=== PATIENT | male | born 1955 | race Caucasian/White ===

== ENCOUNTER → 2017-12-02 | Outpatient (CLI) | payer BC, OTHER ==
[~2017-12-02] MED LIST: ACET325T14 PO; CELE200C PO; NAPR250T6 PO; NICO2GUM5 PO
[2017-12-02 09:52] LABS: MICROSCOPIC NOT IND
[2017-12-02 09:54] LABS: BASOPHILS # (AUTO) 0.05 x10^3/uL (0-0.1); BASOPHILS % (AUTO) 0 % (0-1); EOSINOPHILS # (AUTO) 0.25 x10^3/uL (0-0.4); EOSINOPHILS % (AUTO) 2 % (1-7); LYMPHOCYTES # (AUTO) 2.98 x10^3/uL (1-3.4); LYMPHOCYTES % (AUTO) 22 % (22-44); MD NO; MEAN CORPUSCULAR HEMOGLOBIN 31.7 pg (27.5-34.5); MEAN CORPUSCULAR HGB CONC 34.4 g/dL (33.2-36.2); MEAN PLATELET VOLUME 8.6 fL (7.4-10.4); MONOCYTES # (AUTO) 0.91 x10^3/uL (0.2-0.8); MONOCYTES % (AUTO) 7 % (2-9); NEUTROPHILS # (AUTO) 9.24 x10^3/uL (1.8-6.8); NEUTROPHILS % (AUTO) 69 % (42-75); PLATELET COUNT 255 x10^3/uL (130-400); RED BLOOD COUNT 4.95 x10^6/uL (4.38-5.82); RED CELL DISTRIBUTION WIDTH 13.4 % (9.4-14.8)
[2017-12-02 10:00] LABS: CULTURE INDICATED? NO
[2017-12-02 10:07] LABS: ALANINE AMINOTRANSFERASE 32 U/L (12-78); ALBUMIN 3.5 g/dL (3.4-5.0); ANION GAP 6 mmol/L (5-15); CALCIUM 8.7 mg/dL (8.5-10.1); CHLORIDE 113 mmol/L (98-107); CREATININE 0.93 mg/dL (0.7-1.3)
[2017-12-02 10:17] LABS: ALKALINE PHOSPHATASE 77 U/L (45-117); BILIRUBIN,TOTAL 0.3 mg/dL (0.2-1.0); TOTAL PROTEIN 7.1 g/dL (6.4-8.2)
== END | disposition home or self-care (01) ==
LOC: STAR 08:44
PROVIDERS: ATTEND Orthopaedic Surgery
DX: Z01.818 Encounter for other preprocedural examination (principal); M16.12 Unilateral primary osteoarthritis, left hip
CPT/HCPCS: 36415; 80053; 81003; 85025; 87081; 87147; 87806; 93005; G0475

== ENCOUNTER 2017-12-06 05:55 | Inpatient (IN) | payer BC, OTHER ==
[~2017-12-06] VITALS: Ht 193 cm; Wt 110.3 kg
[2017-12-06] MEDS ORDERED: VANCOMYCIN PMX 1GM/200ML 200 ML IV ONE (06:07)
[2017-12-06] MEDS ORDERED: LACTATED RINGERS 1,000 ML IV SCH (06:37)
[2017-12-06] MEDS ORDERED: TRANEXAMIC ACID 100 MG/ML, 10ML ONE (06:56)
[2017-12-06] MEDS ORDERED: KETOROLAC 60 MG/2 ML ONE (06:56)
[2017-12-06] MEDS ORDERED: morphine SULFATE/PF 1 MG/ML, 10ML ONE (06:57)
[2017-12-06] MEDS ORDERED: EPINEPHRINE 1 MG/ML, 1ML ONE (06:57)
[2017-12-06] MEDS ORDERED: SODIUM CHLORIDE 0.9% 100 ML ONE (06:57)
[2017-12-06] MEDS ORDERED: BACITRACIN 50,000 UNIT ONE (06:57)
[2017-12-06] MEDS ORDERED: FENTANYL PF 100 MCG/2ML ONE (07:16)
[2017-12-06] MEDS ORDERED: MIDAZOLAM 1 MG/ML, 2ML ONE (07:16)
[2017-12-06] MEDS ORDERED: TRANEXAMIC ACID 1,000 MG in SODIUM CHLORIDE 0.9% 100 ML IV ONE (08:00)
[2017-12-06] MEDS ORDERED: DIPHENHYDRAMINE 50 MG CAPSULE PO PRN (08:00)
[2017-12-06] MEDS ORDERED: LORazepam 2 MG/ML, 1ML IVPush PRN (08:00)
[2017-12-06] MEDS ORDERED: MORPHINE SULFATE 4 MG/ML, 1ML IVPush PRN (08:00)
[2017-12-06] MEDS ORDERED: ACETAMINOPHEN 325 MG TABLET PO PRN ×2 (08:00→09:00)
[2017-12-06] MEDS ORDERED: ZOLPIDEM 5MG TABLET PO PRN (08:00)
[2017-12-06] MEDS ORDERED: EPHEDRINE 50 MG/ML, 1ML ONE ×2 (08:59)
[2017-12-06] MEDS ORDERED: CEFAZOLIN 1,000 MG ONE ×3 (08:59)
[2017-12-06] MEDS ORDERED: PROPOFOL 10 MG/ML, 20ML ONE (08:59)
[2017-12-06] MEDS ORDERED: DIAZEPAM 5 MG/ML, 2ML IVPush PRN (09:00)
[2017-12-06] MEDS ORDERED: PROMETHAZINE 25 MG/ML, 1ML IV PRN (09:00)
[2017-12-06] MEDS ORDERED: MEPERIDINE/PF 25MG/0.5ML IVPush PRN (09:00)
[2017-12-06] MEDS ORDERED: MIDAZOLAM 1 MG/ML, 2ML IV PRN (09:00)
[2017-12-06] MEDS ORDERED: morphine SULFATE 10 MG/ML, 1ML IV PRN (09:00)
[2017-12-06] MEDS ORDERED: DEXAMETHASONE 4 MG/ML, 1ML ONE ×2 (09:00)
[2017-12-06] MEDS ORDERED: hydrALAzine 20 MG/ML, 1ML IV PRN (09:00)
[2017-12-06] MEDS ORDERED: METOPROLOL 1 MG/ML, 5ML IV PRN (09:00)
[2017-12-06] MEDS ORDERED: EPHEDRINE 50 MG/ML, 1ML IVPush PRN (09:00)
[2017-12-06] MEDS ORDERED: HYDROcodone/APAP 7.5-325MG/15ML UDC PO PRN (09:00)
[2017-12-06] MEDS ORDERED: ONDANSETRON 2MG/ML, 2ML ONE ×2 (09:00)
[2017-12-06] MEDS ORDERED: FENTANYL PF 100 MCG/2ML IV PRN (09:00)
[2017-12-06] MEDS ORDERED: PROMETHAZINE 12.5 MG SUPP PR PRN (09:00)
[2017-12-06] MEDS ORDERED: OXYcodone 5 MG/5 ML ORAL.SOL UDC PO PRN (09:00)
[2017-12-06] MEDS ORDERED: ALBUTEROL SULFATE 2.5 MG/3 ML NPPB PRN (09:00)
[2017-12-06] MEDS ORDERED: LABETALOL 5MG/ML, 20ML IV PRN (09:00)
[2017-12-06] MEDS ORDERED: ALBUTEROL/IPRATROPIUM 2.5MG/0.5MG, 3 ML NPPB PRN (09:00)
[2017-12-06] MEDS ORDERED: ONDANSETRON 2MG/ML, 2ML IVPush PRN (09:00)
[2017-12-06] MEDS ORDERED: ACETAMINOPHEN 650 MG/20.3 ML UDC ONE (10:38)
[2017-12-06] MEDS ORDERED: OXYcodone 5 MG/5 ML ORAL.SOL UDC ONE (10:38)
[2017-12-06 11:15] VITALS: BP 114/74
[2017-12-06] MEDS: D5%-0.45% NACL 1,000 ML IV SCH ×4 (12:24→22:35)
[2017-12-06] MEDS: CEFAZOLIN PMX 1GM/50ML 50 ML IVPB SCH ×2 (13:24→22:01)
[2017-12-06 14:00] VITALS: BP 110/76
[2017-12-06] MEDS: NICOTINE GUM 2 MG BC SCH (14:00)
[2017-12-06] MEDS: OXYcodone/APAP 7.5/325MG TABLET PO PRN ×3 (15:19→20:08)
[2017-12-06] MEDS: ONDANSETRON 2MG/ML, 2ML IVPush PRN ×2 (15:25→20:08)
[2017-12-06 19:23] VITALS: BP 123/81
[2017-12-06 23:50] VITALS: BP 114/65
[2017-12-07] MEDS: OXYcodone/APAP 7.5/325MG TABLET PO PRN ×4 (00:35→12:16)
[2017-12-07] MEDS: D5%-0.45% NACL 1,000 ML IV SCH ×2 (03:35→08:10)
[2017-12-07 04:00] VITALS: BP 113/71
[2017-12-07] MEDS: CEFAZOLIN PMX 1GM/50ML 50 ML IVPB SCH (04:55)
[2017-12-07] MEDS ORDERED: VANCOMYCIN PMX 1GM/200ML 200 ML IVPB ONE (07:00)
[2017-12-07] MEDS ORDERED: ASPIRIN 325 MG TABLET EC PO SCH (08:00)
[2017-12-07 08:03] VITALS: BP 107/69
[2017-12-07] MEDS: NICOTINE GUM 2 MG BC SCH (08:10)
[2017-12-07] MEDS: ONDANSETRON 2MG/ML, 2ML IVPush PRN (08:29)
[2017-12-07] MEDS ORDERED: DOCUSATE 100 MG CAPSULE PO SCH (09:00)
[2017-12-07 12:59] VITALS: BP 119/61
[2017-12-07] MEDS ORDERED: ONDA4TAB7 PO (13:23)
== END 2017-12-07 14:15 | disposition home or self-care (01) | DRG 470 ==
LOC: ORIP 05:55 → 4NOR 11:13
PROVIDERS: ADMIT Orthopaedic Surgery; ATTEND Orthopaedic Surgery
PROC: 0SRB0JZ Replacement of Left Hip Joint with Synthetic Substitute, Open Approach (ICD-10-PCS; principal; 2017-12-06 07:30)
DX: M16.12 Unilateral primary osteoarthritis, left hip (principal)
CPT/HCPCS: 36415; 85018; 86850; 86900; C1713; J0171; J0690; J1100; J1885; J2250; J2274; J2405; J2704; J3010; J3370; C1776; J2060; J7120